=== PATIENT | male | born 1970 | race Two or more races ===

== ENCOUNTER 2023-01-01 08:10 | Outpatient (AMB) | payer OTHER, SELFPAY ==
--- NOTE | 2023-01-01 08:17 | A.OFFVIS_ITS ---
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 Patient states I went through physcical therapy because i was partially paralyzed wne to physical therapy for 2 months in 2009. i still have no feeling whatsoever inside by body. 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 Pt states that he was paralyzed from elbows to hands and from knees to feet not move his hands and feet. He did physical therapy and he was able to move his arms and legs again. He reports muscle tiredness, soreness and weakness, it has been progressed slowly but more progressed over the last 5 years. 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 He still has hand weakness but able to drive. He can move his extremities, but reports decreased sensation, especially can't feel pressure in his legs. Fermin difficulty walking. He started having burning sensation on his arm and hands, it is new and started couple of days ago. Denies difficulty swallowing. He has intermittent shortness of breathe with exertion. He works overnight but does not sleep well during daytime. [facility] Social History (Updated 01/01/23 @ 08:21 by Leonarda Jackson [facility]) Alcohol intake: never Patient Tobacco Use Status: Current someday Tobacco user Substance Use Type: Marijuana Review of Systems Const All systems reviewed & are unremarkable except as noted in HPI and below ENT Reports Normal hearing present Neuro Reports Normal hearing present Physical Exam Vital Signs: Last Vital Signs Pulse 93 01/01/23 08:18 BP 150/110 H 01/01/23 08:18 BMI result Body Mass Index 30.6 Const General: cooperative and tired appearing Nutritional Appearance: obese Orientation/consciousness: patient oriented x3 Neck Neck: Yes full ROM and Yes supple Resp Effort & Inspection: normal respiratory effort and able to speak in complete sentences Neuro Other: 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 Decreased pressure sensation in his lower leg. General: patient oriented x3, gait normal and moves all extremities Cranial nerves: Yes Bilaterally intact EOM present, Yes Normal facial strength present, Yes Midline tongue present, Yes Symmetric palate elevation present, Yes Normal hearing present, Yes Ability to bilaterally rotate head present and Yes Ability to bilaterally elevate shoulders present Cognition (Neuro): normal cognition Gait exam (Neuro): Normal gait present Motor exam (neuro): 5/5 motor strength present throughout, Pronator motor function not present and no tremor noted Deep tendon reflexes (DTR's): Rt Biceps (C5, C6): 2+, Left biceps reflex intensity grade: 2+, Right brachioradialis reflex intensity grade: 2+, Left brachioradialis reflex intensity grade: 2+, Right patellar reflex intensity grade: 2+ and Left patellar reflex intensity grade: 2+ Coordination: [id number] test normal Assessment & Plan Assessment & Plan (1) Decreased sensation of lower extremity: Code(s): R20.8 - Other disturbances of skin sensation (2) Muscle weakness of all 4 extremities: Code(s): M62.81 - Muscle weakness (generalized) (3) 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 Will check labs for reversible causes. Continue to do home physical therapy. Orders: Orders NE electromyogram (EMG) 01/01/23 G61.0 - Guillain-Ravalli syndrome, M62.81 - Muscle weakness (generalized), R20.8 - Other disturbances of skin sensation Erythrocyte Sedimentation Rate 01/01/23 G61.0 - Guillain-Ravalli syndrome, M62.81 - Muscle weakness (generalized), R20.8 - Other disturbances of skin sensation TSH reflex Free T4 01/01/23 G61.0 - Guillain-Ravalli syndrome, M62.81 - Muscle weakness (generalized), R20.8 - Other disturbances of skin sensation Vitamin B12 and Folate 01/01/23 G61.0 - Guillain-Ravalli syndrome, M62.81 - Muscle weakness (generalized), R20.8 - Other disturbances of skin sensation Coding Level of Care Code New Pt Level 4 (07347) Diagnoses Decreased sensation of lower extremity R20.8 Muscle weakness of all 4 extremities M62.81 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
[2023-01-01 08:18] VITALS: BP 150/110; PULSE 93; BMI 30.6
== END 2023-01-01 09:19 | disposition home or self-care (01) ==
PROVIDERS: PCP Student in an Organized Health Care Education/Training Program; Visit Provider Nurse Practitioner Family
DX: R20.8 Other disturbances of skin sensation (principal); M62.81 Muscle weakness (generalized); G61.0 Guillain-Barre syndrome
CPT/HCPCS: 99204

== ENCOUNTER → 2023-01-01 08:10 | Outpatient (BNVA) | payer OTHER, SELFPAY | PROVIDERS: PCP Student in an Organized Health Care Education/Training Program; Visit Provider Nurse Practitioner Family ==

== ENCOUNTER 2023-02-21 08:32 | Outpatient (REF) | payer OTHER, SELFPAY ==
--- NOTE | 2023-02-21 08:36 | EMG_ITS ---
Chief complaint: Patient reported being diagnosed with GBS about 15 years ago. He says that he never recovered his strength completely. He was noticing deterioration over the years, with numbness on both hands and feet. Reason for referral: Evaluate for neuropathy Referred by: Jonny Barone Procedure done: Right upper extremity, bilateral lower extremity, NCS/EMG Precautions and/or limitations: None The limb temperature was monitored continuously and remained between 32-36 degrees C during the performance of the NCS. Nerve Conduction Studies Anti Sensory Summary Table ?Stim Site NR Onset (ms) Norm Onset (ms) Peak (ms) Norm Peak (ms) O-P Amp (?V) Norm O-P Amp Site1 Site2 Delta-0 (ms) Dist (cm) Cruz (m/s) Norm Cruz (m/s) Right Median Anti Sensory (2nd Digit) Wrist ? 2.7 3.6 <3.6 51.6 >10 Wrist 2nd Digit 2.7 14.0 52 Right Radial Anti Sensory (Thumb) Forearm ? 1.8 2.5 <3.1 30.2 Forearm Thumb 1.8 0.0 Left Sural Anti Sensory (Lat Mall) Calf ? 2.4 3.0 <4.0 16.5 >5.0 Calf Lat Mall 2.4 14.0 58 Right Sural Anti Sensory (Lat Mall) Calf ? 2.6 3.4 <4.0 15.1 >5.0 Calf Lat Mall 2.6 14.0 54 Right Ulnar Anti Sensory (5th Digit) Wrist ? 2.5 3.7 <3.7 33.9 >15.0 Wrist 5th Digit 2.5 14.0 56 Motor Summary Table ?Stim Site NR Onset (ms) Norm Onset (ms) O-P Amp (mV) Norm O-P Amp iAmp (mV) Amp (1st) (%) Site1 Site2 Delta-0 (ms) Dist (cm) Cruz (m/s) Norm Cruz (m/s) Right Median Motor (Abd Poll Brev) Wrist ? 3.8 <3.9 11.7 >4.5 14.5 100.0 Elbow Wrist 3.6 21.0 58 >45 Elbow ? 7.4 13.8 16.9 117.9 Right Peroneal Motor (Ext Dig Brev) Ankle ? 3.8 <4.0 10.3 >2.5 12.3 100.0 Ankle Ext Dig Brev 3.8 0.0 B Fib ? 10.5 12.4 14.8 120.4 B Fib Ankle 6.7 33.0 49 >40 Poplt ? 11.3 12.2 14.6 118.4 Poplt B Fib 0.8 5.0 62 >40 Left Tibial Motor (Abd Lopez Brev) Ankle ? 4.2 <5 8.2 >2.5 9.7 100.0 Ankle Abd Lopez Brev 4.2 0.0 Knee ? 12.4 9.4 11.3 114.6 Knee Ankle 8.2 41.0 50 >40 Right Tibial Motor (Abd Lopez Brev) Ankle ? 3.8 <5 8.6 >2.5 11.3 100.0 Ankle Abd Lopez Brev 3.8 0.0 Knee ? 12.2 7.7 9.6 89.5 Knee Ankle 8.4 40.0 48 >40 Right Ulnar Motor (Abd Dig Minimi) Wrist ? 2.8 <3.0 12.9 >5 16.4 100.0 B Elbow Wrist 3.3 19.0 58 >45 B Elbow ? 6.1 12.1 15.2 93.8 A Elbow B Elbow 1.6 10.0 62 >45 A Elbow ? 7.7 11.9 14.7 92.2 F Wave Studies ?NR F-Lat (ms) Lat Norm (ms) L-R F-Lat (ms) L-R Lat Norm Right Median (Mrkrs) (Abd Poll Brev) ? 27.98 <33 <2.2 Right Peroneal (Mrkrs) (EDB) ? 49.84 <60 <5.1 Left Tibial (Mrkrs) (Abd Hallucis) ? 47.85 <61 0.14 <5.7 Right Tibial (Mrkrs) (Abd Hallucis) ? 47.71 <61 0.14 <5.7 Right Ulnar (Mrkrs) (Abd Dig Min) ? 27.19 <36 <2.5 EMG ?Side Muscle Nerve Root Ins Act Fibs Psw Amp Dur Poly Recrt Int Pat Comment Right 1stDorInt Ulnar C8-T1 Nml Nml Nml Nml Nml 0 Nml Complete Right FlexCarRad Median C6-7 Nml Nml Nml Nml Nml 0 Nml Complete Right Biceps Musculocut C5-6 Nml Nml Nml Nml Nml 0 Nml Complete Right Triceps Radial C6-7-8 Nml Nml Nml Nml Nml 0 Nml Complete Right Deltoid Axillary C5-6 Nml Nml Nml Nml Nml 0 Nml Complete Right AbdHallucis MedPlantar S1-2 Nml Nml Nml Nml Nml 0 Nml Complete Right AntTibialis Dp Br Peron L4-5 Nml Nml Nml Nml Nml 0 Nml Complete Right PostTibialis Tibial L5, S1 Nml Nml Nml Nml Nml 0 Nml Complete Right MedGastroc Tibial S1-2 Nml Nml Nml Nml Nml 0 Nml Complete Right VastusMed Femoral L2-4 Nml Nml Nml Nml Nml 0 Nml Complete Paraspinal EMG ?Side Muscle Nerve Root Ins Act Fibs Psw Comment Right Cervical Upper Rami Nml Nml Nml Right Cervical Mid Rami Nml Nml Nml Right Cervical Lower Rami Nml Nml Nml Right Lumbar Upper Rami Nml Nml Nml Right Lumbar Mid Rami Nml Nml Nml Right Lumbar Lower Rami Nml Nml Nml FINDINGS: All motor and sensory nerves tested showed normal latencies, amplitudes and conduction velocities. No temporal dispersion seen. F waves showed normal latencies. Concentric needle EMG was performed in selected muscles of the right upper extremity and lower extremity, cervical paraspinals, lumbar paraspinals. Study did not reveal signs of electric abnormalities as shown in the table below. IMPRESSION: 1. This is a normal study. 2. There is no electrodiagnostic evidence for median neuropathy, ulnar neuropathy, brachial plexopathy, or cervical radiculopathy on right upper extremity. 3. . There is no electrodiagnostic evidence for peroneal neuropathy, tibial neuropathy, lumbosacral plexopathy, lumbar radiculopathy, or peripheral neuropathy. Thank you for your kind referral. Lyndsey Rivers MD, CARLOS Board Certified, [place] [employer] and [employer] (ABPMR) Board Certified, [place] [employer] Electro[employer]ostic [employer] (ABEM) CODIN 73990 x 2 MTDD
== END 2023-02-21 08:33 | disposition home or self-care (01) ==
LOC: HO.NEURO 08:32
PROVIDERS: PCP Student in an Organized Health Care Education/Training Program; Visit Provider Nurse Practitioner Family
DX: G61.0 Guillain-Barre syndrome (principal); M62.81 Muscle weakness (generalized); R20.8 Other disturbances of skin sensation
CPT/HCPCS: 95886; 95911

== ENCOUNTER → 2023-02-21 08:36 | Outpatient (BNV) | payer OTHER, SELFPAY | PROVIDERS: PCP Student in an Organized Health Care Education/Training Program; Visit Provider Physical Medicine & Rehabilitation | DX: M79.601 Pain in right arm (principal); M79.641 Pain in right hand; M79.605 Pain in left leg | CPT/HCPCS: 95886; 95911 ==